=== PATIENT | female | born 1995 | race Caucasian/White ===

== ENCOUNTER 2017-05-13 19:19 | Emergency (ER) | payer SELFPAY ==
[2017-05-13 19:37] VITALS: RESP 20; TEMP 98; O2SAT 99
[2017-05-13 20:17] VITALS: BP 104/77; PULSE 84
== END 2017-05-13 20:15 | disposition home or self-care (01) | DRG 159 ==
LOC: ED 19:19
DX: K04.7 Periapical abscess without sinus (principal)
CPT/HCPCS: 99282

== ENCOUNTER 2017-10-15 02:21 | Emergency (ER) | payer OTHER ==
[2017-10-15 02:26] VITALS: TEMP 96; O2SAT 100
[2017-10-15] MEDS ORDERED: ONDANSETRON 4 MG ODT BU ONE (02:47)
[2017-10-15] MEDS ORDERED: ACETAMINOPHEN 325 MG PO ONE (02:47)
[2017-10-15] MEDS ORDERED: ACETAMINOPHEN 325 MG ONE (02:50)
[2017-10-15] MEDS ORDERED: ONDANSETRON 4 MG ODT ONE (02:50)
[2017-10-15 04:26] VITALS: BP 111/65; PULSE 74; RESP 20
== END 2017-10-15 04:18 | disposition home or self-care (01) ==
LOC: ED 02:21
DX: R51 Headache (principal); M54.2 Cervicalgia
CPT/HCPCS: 70450; 72125; 99284; A9270-GY

== ENCOUNTER 2018-02-11 05:36 | Emergency (ER) | payer OTHER ==
[2018-02-11 05:36] VITALS: O2SAT 100
[2018-02-11 05:42] VITALS: RESP 16; TEMP 97
[2018-02-11] MEDS ORDERED: KETOROLAC TROMETHAMINE 30 MG/ML SOL IM ONE (06:00)
[2018-02-11] MEDS ORDERED: KETOROLAC TROMETHAMINE 30 MG/ML SOL ONE (06:04)
[2018-02-11 06:37] VITALS: BP 134/95; PULSE 79
== END 2018-02-11 06:21 | disposition home or self-care (01) ==
LOC: ED 05:36
DX: K04.7 Periapical abscess without sinus (principal)
CPT/HCPCS: 96372; 99282; 99283; J1885

== ENCOUNTER 2018-02-12 09:48 | Emergency (ER) | payer OTHER ==
[2018-02-12 09:48] VITALS: O2SAT 100
[2018-02-12 10:03] VITALS: RESP 20; TEMP 97.6
[2018-02-12] MEDS ORDERED: KETOROLAC TROMETHAMINE 30 MG/ML SOL IM ONE (10:15)
[2018-02-12] MEDS ORDERED: KETOROLAC TROMETHAMINE 30 MG/ML SOL ONE (10:25)
[2018-02-12 11:18] VITALS: BP 140/78; PULSE 72
== END 2018-02-12 11:14 | disposition home or self-care (01) ==
LOC: ED 09:48
DX: K04.7 Periapical abscess without sinus (principal)
CPT/HCPCS: 96372; 99283; J1885

== ENCOUNTER 2018-12-29 22:55 | Inpatient (IN) | payer OTHER ==
[2018-12-29 18:29] LABS: ABO A; RH TYPE Negative
[2018-12-29 18:32] LABS: ANTIBODY SCREEN Negative
[2018-12-29] MEDS ORDERED: LACTATED RINGERS 1,000 ML IV ONE (23:20)
[2018-12-29] MEDS ORDERED: [UNRECOGNIZED DRUG - OTHER] ONE (23:34)
[2018-12-29] MEDS ORDERED: NALBUPHINE HCL 20 MG/ML SOL IV ONE (23:35)
[2018-12-30] MEDS ORDERED: FENTANYL 100MCG/2ML SOL IV PRN (00:48)
[2018-12-30] MEDS ORDERED: LACTATED RINGERS 1,000 ML IV PRN (00:48)
[2018-12-30] MEDS ORDERED: SODIUM CHLORIDE 0.9% FLUSH 10 ML SOL IV PRN (00:48)
[2018-12-30] MEDS ORDERED: MEPIVACAINE HCL 1% MPF 30 ML/VIAL SOL INFIL PRN (00:48)
[2018-12-30] MEDS ORDERED: METHYLERGONOVINE MALEATE 0.2 MG/ML SOL IM PRN (00:48)
[2018-12-30] MEDS ORDERED: OXYTOCIN 10000 MU/ML SOL IM PRN (00:48)
[2018-12-30] MEDS ORDERED: CARBOPROST 250 MCG/ML SOL IM PRN (00:48)
[2018-12-30] MEDS ORDERED: SODIUM CHLORIDE 0.9% FLUSH 10 ML SOL IV SCH (01:00)
[2018-12-30] MEDS ORDERED: WITCH HAZEL 1 EA PAD TOP PRN (01:08)
[2018-12-30] MEDS ORDERED: BENZOCAINE/MENTHOL 1 SPR TOP PRN (01:08)
[2018-12-30] MEDS ORDERED: TEMAZEPAM 15MG 15 MG CAP PO PRN (01:08)
[2018-12-30] MEDS ORDERED: APAP/HYDROCODONE 1 EACH TABLET PO PRN (01:08)
[2018-12-30] MEDS ORDERED: METHYLERGONOVINE MALEATE 0.2 MG TAB PO PRN (01:08)
[2018-12-30] MEDS ORDERED: FLEET ENEMA PR PRN (01:08)
[2018-12-30] MEDS ORDERED: BISACODYL 10 MG SUP PR PRN (01:08)
[2018-12-30] MEDS: IBUPROFEN 600 MG TAB PO PRN ×3 (03:10→21:33)
[2018-12-30] MEDS: DOCUSATE SODIUM 100 MG SGL PO SCH ×2 (09:17→21:33)
[2018-12-30 14:43] LABS: ABO A
[2018-12-30 14:44] LABS: RH TYPE Negative
[2018-12-30 16:05] LABS: AMPHETAMINES POSITIVE (NEGATIVE); BARBITUATES NEGATIVE (NEGATIVE); BENZODIAZEPINES NEGATIVE (NEGATIVE); CANNABINOL(THC) NEGATIVE (NEGATIVE); COCAINE(COC) NEGATIVE (NEGATIVE); METHADONE NEGATIVE (NEGATIVE); METHAMPHETAMINES POSITIVE (NEGATIVE); OPIATES(OPI) NEGATIVE (NEGATIVE); OXYCODONE(OXY) NEGATIVE (NEGATIVE); PROPOXYPHENE(PPX) NEGATIVE (NEGATIVE); TRICYCLIC ANTIDEPRESSANTS NEGATIVE (NEGATIVE)
[2018-12-31] MEDS: IBUPROFEN 600 MG TAB PO PRN ×2 (05:18→20:18)
[2018-12-31] MEDS: DOCUSATE SODIUM 100 MG SGL PO SCH ×2 (09:33→20:18)
[2018-12-31] MEDS ORDERED: ACETAMINOPHEN 500 MG 500 MG TAB ONE (10:06)
[2018-12-31] MEDS: ACETAMINOPHEN 500 MG 500 MG TAB PO PRN (10:08)
[2018-12-31 17:02] VITALS: TEMP 97.9
[2018-12-31 20:21] VITALS: O2SAT 98
[2019-01-01] MEDS: IBUPROFEN 600 MG TAB PO PRN (02:31)
[2019-01-01 09:45] VITALS: BP 143/82; PULSE 101; RESP 20
[2019-01-01] MEDS ORDERED: ACETAMINOPHEN 500 MG 500 MG TAB ONE (09:55)
[2019-01-01] MEDS: DOCUSATE SODIUM 100 MG SGL PO SCH (09:59)
[2019-01-01] MEDS: ACETAMINOPHEN 500 MG 500 MG TAB PO PRN (10:00)
[2019-01-01] MEDS ORDERED: INFLUENZA VIRUS VACCINE 0.5 ML SUS IM ONE ×2 (14:34→14:54)
== END 2019-01-01 17:15 | disposition home or self-care (01) | DRG 807 ==
LOC: OBSVTOIN 22:55 → OB 22:55
PROVIDERS: ADMIT Family Medicine; ATTEND Family Medicine
PROC: 10E0XZZ Delivery of Products of Conception, External Approach (ICD-10-PCS; principal; 2018-12-30)
DX: O80 Encounter for full-term uncomplicated delivery (principal); Z37.0 Single live birth; R10.13 Epigastric pain; Z3A.39 39 weeks gestation of pregnancy; F11.90 Opioid use, unspecified, uncomplicated; F15.90 Other stimulant use, unspecified, uncomplicated
CPT/HCPCS: 36415; 59025; 80305; 84112; 85018; 86850; 86900; 86901; 90686; J2300; A9270-GY; G0008